=== PATIENT | male | born 1995 | race African-American/Black ===

== ENCOUNTER 2023-04-08 21:31 | Emergency (ER) | payer SELFPAY ==
[2023-04-08] MEDS ORDERED: Ondansetron PF 4 MG/2 ML Vial ONE (22:27)
[2023-04-08] MEDS ORDERED: Morphine 4 MG/ML VIAL ONE (22:27)
== END 2023-04-09 06:43 | disposition home or self-care (01) ==
LOC: ERS 21:31
DX: K59.00 Constipation, unspecified (principal); R11.2 Nausea with vomiting, unspecified; I10 Essential (primary) hypertension; F17.210 Nicotine dependence, cigarettes, uncomplicated
CPT/HCPCS: 76705; 96374; 96375; J2270; J2405